=== PATIENT | male | born 1960 ===

== ENCOUNTER 2024-06-19 06:01 | Day surgery (SDC) | payer BC, SELFPAY ==
--- NOTE | 2024-06-06 12:14 | VNURNOTE ---
SDS R TKA planned for 06/[address] Blake. Called patient pre-op. No answer, left message. Confirmed with Patrica prior that pt will be SDS and need [facility] in the home post op. Referral placed in [facility].
--- NOTE | 2024-06-06 12:40 | VNURNOTE ---
Addendum:
Received call back from patient. He has never had [facility] services before.
Patient reports that he lives with his in a split level home.
No steps to enter and bedroom on second floor. Patient has a recliner on the first floor that he can use. No bathroom on first floor.
He currently functions independently. He has a rolling walker and will obtain a cane. He was reminded to bring rolling walker with him day of surgery.
PCP is Alesia Lara.
Discussed orthopedic program and post surgical plans.
Reviewed that he will have VN services initially and will then start outpatient PT. He confirms he has appt with Outpt PT 'in [place] or [place].' patient did not have info available at time of call.
Patient selects [facility] for his home care needs and will go to outpatient PT.
Patient is in agreement with plan and states that his will be home with him.
Plan:[facility] joint protocol then outpt PT. Patrica Leblanc at [facility] aware
[2024-06-19] VITALS (13 sets, daily range): BP systolic 114–149; BP diastolic 75–100; BMI 33.7
[2024-06-19] MEDS: CELEBREX 200 MG PO (06:35)
[2024-06-19] MEDS: TYLENOL 650 MG PO (06:36)
[2024-06-19] MEDS: NORMOSOL-R/PLASMALYTE-A 1000 IV ×2 (06:37→12:48)
[2024-06-19 08:21] LABS: Glycohemoglobin (HgbA1c) 5.6 % (4.0-5.6)
[2024-06-19] MEDS: ANCEF 5 IV (11:32)
[2024-06-19] MEDS: FLOMAX 0.4 MG PO (11:40)
--- NOTE | 2024-06-19 17:45 | OR.RPT ---
Operative Report
Operative Report
Orthopaedic Surgery Operative Note
DATE OF OPERATION: 06/19/2024
PREOPERATIVE DIAGNOSES: Osteoarthritis, right knee.
POSTOPERATIVE DIAGNOSES: Osteoarthritis, right knee.
OPERATION PERFORMED:
1) Right total knee arthroplasty (CPT 39351)
2) Intraosseous administration of analgesic (CPT 55215)
SURGEON: Edilberto Blake MD
ASSISTANTS: Jacob Jung PA-C who helped with patient and limb positioning and retraction
ANESTHESIA: Spinal by anesthesia plus intraoperative infusion of morphine into the tibial metaphysis by Dr. Blake
COMPLICATIONS: None.
ESTIMATED BLOOD LOSS: 30mL
DRAINS: None
TOURNIQUET TIME: 53minutes.
IMPLANTS:
- Vy Persona CR Femur, size 12
- Vy Persona tibia base plate, size G
- Vy Persona ultracongruent articular surface, 14mm
- All-polyethylene patellar component, size 35
- DJO [place] bone cement
INDICATIONS: The patient presented to my office with debilitating right knee pain due to osteoarthritis. We reviewed the natural history of this problem, as well as the risks, benefits, and alternatives of various treatment options. The patient
exhausted all nonoperative treatment options and wished to proceed with knee replacement surgery. The patient understood the risks which included, but were not limited to, bleeding, infection, failure to relieve pain, more pain than preop, damage to
blood vessels and nerves, need for reoperation, mechanical failure of the implants, wound healing problems, stiffness, instability, blood clot, pulmonary embolism, myocardial infarction, pneumonia, arrhythmia, CVA, and . The patient accepted
these risks and wished to proceed. All questions were answered, and informed consent was obtained.
PROCEDURE IN DETAIL: The patient was identified in the preoperative holding area. The right knee was identified as the operative site. The patient was taken in the operating room and placed in a supine position on the operating table. Spinal
anesthesia was performed. IV antibiotics and tranexamic acid were administered. An SCD was placed on the left lower extremity. A well-padded tourniquet was placed on the proximal thigh. All bony prominences were well padded. The right lower
extremity was prepped and draped in the usual sterile fashion.
We performed a surgical time-out. An interarticular block was performed with local anesthetic with epinephrine. The limb was exsanguinated with an Esmarch bandage, then the tourniquet was inflated to 250 mmHg. I performed interosseous administration
of morphine-saline solution via a Jamshidi style intraosseous needle into the proximal medial tibial metaphysis as described by Herrera Sloan MD. This was performed to aid in pain control. A midline skin incision was made followed by a medial
parapatellar arthrotomy. A subperiosteal peel was performed on the medial tibia. I excised part of the infrapatellar fat pad to improve our visualization as well as tissue over anterior femur. The patella was everted and the knee was flexed. I
excised the remnants of the anterior and posterior cruciate ligaments as well as tibial and femoral osteophytes with rongeurs.
The knee was flexed, and the extramedullary tibial cutting guide was aligned. Cavalier was aligned at neutral, rotation was centered on the tibial tubercle, and coronal alignment was aligned with the mechanical axis of the tibia and center of the ankle
joint. The cut height was 10mm off the lateral tibia joint surface. The guide was secured into place. The MCL and LCL were protected. The tibia surface was cut. The cut surface was inspected after removal to ensure appropriate height and slope based
on the preoperative plan. The cut was checked with a drop deonte. It was centered nicely at the ankle.
A drill was used to open the femoral canal. The intramedullary distal femoral cutting guide was inserted into the femur. This was set at 5 degrees +0. This was secured into place with three pins. The cut level was checked with an juan wing. The
distal femur was cut through the cutting guide. The IM guide was reinserted to double check that the level of resection was flush and in appropriate alignment.
Dickenson�s line and the transepicondylar axis were marked on the femur. The femoral sizing guide was applied to the anterior femur. Pins were inserted, and the 4-in-1 cutting guide was applied and secured into place. The rotation was compared to
Carlos�s line, the transepicondylar axis, and the neutral tibia cut and was found to be appropriate. The width was checked and found to be appropriate and lateralized on the femur. The anterior, posterior, and chamfur cuts were made. A lamina
tabulating machine mechanic was used to open the flexion gap, and posterior osteophytes were removed with a curved osteotome. The remnant medial and lateral meniscus were also removed. I prophylactically cauterized the lateral geniculate arteries. A 10mm spacer block
was applied to the flexion gap and was noted to be balanced medially and laterally. The knee was extended, and the block showed symmetric to extension and flexion gaps.
The tibia was exposed and sized. Rotation was set in line with the tibial tubercle and congruent with the femur. The trial was secured into place with two pins. The trial femur was impacted into place, and a trial articular surface was placed. The
knee was taken through range of motion and noted to be stable throughout the arc of motion without gaping or excess tension. In extension, a measured resection of the patella was performed. The patella was sized, and lug holes were drilled. A trial
patella component was applied, and it was noted to track centrally throughout the arc of motion without need for further releases.
The trials were removed. The tibia keel was prepared with the punch and the drill. The bone surfaces were irrigated with sterile saline and dried. The cement was mixed in a vacuum mixer. Cement gun was used to apply cement to the tibial surface and
the undersurface of the tibial implant. Cement was pressurized into the tibial canal and tibia surface. The tibial component was impacted into place. Excess cement was removed. Cement was applied to the femoral surface and the femoral component. The
femoral component was impacted into place, and excess cement removed. A trial articular surface was inserted, and the knee was extended while the cement polymerized. The tourniquet was let down, and meticulous hemostasis was achieved. Dilute
betadine was poured into the wound and allowed to soak for 3 minutes. The knee was irrigated with copious normal saline.
Once the cement was polymerized, the trial articular surface was removed. Any excess cement was removed. The knee was trialed, and the final articular surface was selected and inserted into the tibial locking mechanism. The knee was reduced. A fresh
drape was applied to the surgical field.
The arthrotomy was closed with 0-PDS. Once closed, an interarticular block was performed with local anesthetic with epi. The deep dermal layer was closed with 2-0 PDS, and the subcuticular skin was closed with 3-0 monocryl. A Dermabond Prineo
dressing was applied to the skin in full flexion. Once this was completely dry, a sterile waterproof dressing was applied.
The anesthesia team performed an adductor canal block in the OR. The patient awoke from anesthesia without any difficulties. The sponge and instrument counts were correct x2 at the end of the case.
True Blake MD
== END 2024-06-19 13:05 | disposition home health service (06) ==
LOC: SDS 06:01
PROVIDERS: ATTENDING PHYSICIAN Orthopaedic Surgery; FAMILY PHYSICIAN Family Medicine
DX: M17.11 Unilateral primary osteoarthritis, right knee (principal)
CPT/HCPCS: 27447; C1776; C1713; 73560; 83036; 87070; 97162

== ENCOUNTER → 2025-02-10 14:15 | Outpatient (REF) | payer BC, SELFPAY | LOC: HWRAD 14:15 | PROVIDERS: ATTENDING PHYSICIAN Orthopaedic Surgery Hand Surgery; FAMILY PHYSICIAN Family Medicine | DX: M19.011 Primary osteoarthritis, right shoulder (principal); M25.511 Pain in right shoulder | CPT/HCPCS: 73200 ==

== ENCOUNTER → 2025-02-20 14:59 | Outpatient (REF) | payer BC, SELFPAY | LOC: HWRAD 14:59 | PROVIDERS: ATTENDING PHYSICIAN Family Medicine | DX: R91.8 Other nonspecific abnormal finding of lung field (principal) | CPT/HCPCS: 71250 ==

== ENCOUNTER → 2025-07-10 14:17 | Outpatient (REF) | payer BC, SELFPAY | LOC: HWRAD 14:17 | PROVIDERS: ATTENDING PHYSICIAN Internal Medicine Critical Care Medicine; FAMILY PHYSICIAN Family Medicine | DX: R91.1 Solitary pulmonary nodule (principal) | CPT/HCPCS: 71250 ==

== ENCOUNTER 2025-08-19 06:18 | Day surgery (SDC) | payer BC, SELFPAY ==
[2025-08-04 11:44] LABS: Hematocrit 40.1 % (39.0-52.0); Hemoglobin 13.2 g/dL (13.0-18.0); Mean Corp Hgb Conc. 32.9 g/dL (33.0-37.0); Mean Corpuscular Volume 82.9 fL (80.0-94.0); Platelet Count 279 10^3/uL (130-400); Red Cell Dist. Width 14.1 % (11.5-14.5)
[2025-08-04 12:30] LABS: Glycohemoglobin (HgbA1c) 5.7 % (4.0-5.9)
--- NOTE | 2025-08-04 13:16 | CM ---
Orthopedic Case Management Assessment
Demographics: Plan is to home with spouse after surgery
Living situation: Patient lives with spouse in a spit level home with one step to enter and then 6 steps.
Support Person Post Operatively: spouse
History of
VN: Yes, [facility]
SNF: No
Outpatient No
Has patient purchased required equipment: Patient has sling
PCP: Alesia Lara
Pharmacy: [facility] [place]
Post Operative Discharge Plan: Home with spouse.
[2025-08-04 13:46] LABS: ALT (SGPT) 16 U/L (0-50); AST (SGOT) 17 U/L (17-59); Albumin 4.0 g/dl (3.5-5.0); Alkaline Phosphatase 73 U/L (38-126); Blood Urea Nitrogen 16 mg/dl (9-20); Calcium 9.0 mg/dl (8.4-10.2); Carbon Dioxide 30 mmol/L (22-30); Chloride 99 mmol/L (98-107); Glucose 109 mg/dl (70-99); Potassium 4.9 mmol/L (3.5-5.1); Sodium 134 mmol/L (135-145); Total Protein 6.8 g/dl (6.3-8.2); eGFR > 60.00
[2025-08-04 14:04] VITALS: BMI 36.5
[2025-08-04 15:25] VITALS: BMI 36.5
[2025-08-19] VITALS (9 sets, daily range): BP systolic 106–142; BP diastolic 67–94
[2025-08-19] MEDS: CELEBREX 200 MG PO (11:59)
[2025-08-19] MEDS: TYLENOL 1000 MG PO (12:00)
[2025-08-19] MEDS: NORMOSOL-R/PLASMALYTE-A 1000 IV (12:07)
--- NOTE | 2025-08-19 14:13 | W.DS.TRANS ---
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
-
Discharge Instructions:
Sleep Apnea Risk Intermediate
Discharge Diagnosis/Procedures R shoulder OA s/p R TSA w/ Dr Bailon 08/19/25
Diet Regular
Additional Diets Adequate hydration, minimize opioids, and wear
TEDs stockings to prevent low blood pressure/
dizziness.
Activity As tolerated
Additional Activity Non-weightbearing right upper extremity
Driving Restrictions Not until seen by your Dr
Bathing Restrictions OK to shower in 72 hours
Wound Care Leave dressing on until seen by surgeon's office
for follow-up.
Instructions:
Stand-Alone Forms: SDS Total Shoulder D/C Inst.
Changes to Home Medications: Yes
Discharge Medications:
DC Medications w/original date entered in [employer]
atorvastatin 10 mg tablet 10 mg PO DAILY 06/13/24
dexlansoprazole 60 mg capsule,biphase delayed release (Dexilant) 60 mg PO DAILY 06/13/24
finasteride 5 mg tablet 5 mg PO DAILY 06/13/24
tadalafil 5 mg tablet 5 mg PO DAILY PRN ED 06/13/24
apple cider vinegar 250 mg chewable tablet 250 mg PO DAILY 07/31/25
Held on 08/19/25. Instructions: Resume on 08/27/25.
multivitamin with minerals-folic acid 200 mcg chewable tablet (Men's Multivitamin Gummies) 1 tab PO DAILY 07/31/25
Held on 08/19/25. Instructions: Resume on 08/27/25.
tamsulosin 0.4 mg capsule 0.4 mg PO DAILY 07/31/25
celecoxib 200 mg capsule (Celebrex) 200 mg PO DAILY #14 caps 08/04/25
doxycycline monohydrate 100 mg capsule 100 mg PO BID #7 caps 08/04/25
gabapentin 300 mg capsule 300 mg PO HS neuropathic pain/sleep #10 caps 08/04/25
mupirocin 2 % topical ointment 1 applic intranasal BID #1 tube 08/04/25
ondansetron HCl 4 mg tablet 4 mg PO Q6H PRN nausea and vomiting #30 tabs 08/04/25
oxycodone 5 mg tablet 5 - 10 mg (1 - 2 x 5 mg) PO Q6H PRN moderate-severe pain #30 tabs 08/04/25
Saccharomyces boulardii 250 mg capsule (Florastor) 250 mg PO BID #1 cap 08/19/25
acetaminophen 325 mg tablet (Tylenol) 650 mg (2 x 325 mg) PO QID #1 tab 08/19/25
aspirin 325 mg tablet 325 mg PO DAILY blood clot prevention #1 tab 08/19/25
docusate sodium 100 mg capsule (Colace) 100 mg PO BID stool softner #1 cap 08/19/25
magnesium hydroxide 400 mg/5 mL oral suspension (Milk of Magnesia) 30 ml PO HS PRN constipation #1 mL 08/19/25
sennosides 8.6 mg tablet (Senokot) 17.2 mg (2 x 8.6 mg) PO BID laxative #2 tabs 08/19/25
Home Medication Changes
celecoxib 200 mg capsule (Celebrex) 200 mg PO DAILY #14 caps 08/04/25
doxycycline monohydrate 100 mg capsule 100 mg PO BID #7 caps 08/04/25
gabapentin 300 mg capsule 300 mg PO HS neuropathic pain/sleep #10 caps 08/04/25
mupirocin 2 % topical ointment 1 applic intranasal BID #1 tube 08/04/25
ondansetron HCl 4 mg tablet 4 mg PO Q6H PRN nausea and vomiting #30 tabs 08/04/25
oxycodone 5 mg tablet 5 - 10 mg (1 - 2 x 5 mg) PO Q6H PRN moderate-severe pain #30 tabs 08/04/25
Saccharomyces boulardii 250 mg capsule (Florastor) 250 mg PO BID #1 cap 08/19/25
acetaminophen 325 mg tablet (Tylenol) 650 mg (2 x 325 mg) PO QID #1 tab 08/19/25
aspirin 325 mg tablet 325 mg PO DAILY blood clot prevention #1 tab 08/19/25
docusate sodium 100 mg capsule (Colace) 100 mg PO BID stool softner #1 cap 08/19/25
magnesium hydroxide 400 mg/5 mL oral suspension (Milk of Magnesia) 30 ml PO HS PRN constipation #1 mL 08/19/25
sennosides 8.6 mg tablet (Senokot) 17.2 mg (2 x 8.6 mg) PO BID laxative #2 tabs 08/19/25
Pending Results: No
[2025-08-19] MEDS: ANCEF 5 IV (19:19)
== END 2025-08-19 19:40 | disposition home or self-care (01) ==
LOC: SDS 06:18
PROVIDERS: ATTENDING PHYSICIAN Orthopaedic Surgery Hand Surgery; FAMILY PHYSICIAN Family Medicine
DX: M19.011 Primary osteoarthritis, right shoulder (principal)
CPT/HCPCS: 23472; C1776; C1713; 36415; 80053; 83036; 85027; 87070; 93005